=== PATIENT | male | born 1970 | race African-American/Black ===

== ENCOUNTER 2021-11-25 19:56 | Emergency (ER) | payer OTHER ==
[2021-11-25 20:17] VITALS: BP 146/72; PULSE 72; RESP 19; TEMP 98.1; BMI 25.1
[2021-11-25 21:18] LABS: BASO % 0.6 % (0-2.0); EOS % 2.4 % (0-4.5); HEMATOCRIT 40.4 % (35.4-49); HEMOGLOBIN 13.2 GM/dL (11.7-16.9); LYMPH % 43.3 % (8-40); MCH 26.6 pg (25.7-33.7); MCHC 32.6 g/dl (32.0-35.9); MEAN CELL VOLUME 81.4 fl (80-96); MEAN PLT VOLUME 8.4 fl (7.5-11.1); MONO % 6.3 % (3.8-10.2); NEUT % 47.4 % (42.8-82.8); PLATELET COUNT 258 10^3/uL (134-434); RBC 4.96 M/mm3 (4.00-5.60); RDW 13.7 % (11.9-15.9); WHITE BLOOD COUNT 5.9 K/mm3 (4.0-10.0)
[2021-11-25 21:27] LABS: INR 1.04 (0.83-1.09)
[2021-11-25 21:30] LABS: ACTIVATED PTT 30.1 SECONDS (25.2-36.5)
[2021-11-25 21:42] LABS: CALCIUM 9.7 mg/dL (8.5-10.1)
[2021-11-25 21:43] LABS: ALBUMIN 4.1 g/dl (3.4-5.0); BLOOD UREA NITROGEN 18.5 mg/dL (7-18)
[2021-11-25 21:46] LABS: CREATININE 1.4 mg/dL (0.55-1.3)
[2021-11-25 21:48] LABS: BILIRUBIN,TOTAL 0.2 mg/dL (0.2-1); TOT PROT 7.7 g/dl (6.4-8.2)
[2021-11-25] MEDS ORDERED: SODIUM CHLORIDE 0.9% 500 ML INFUS.BAG IV ONE (21:59)
== END 2021-11-26 00:19 | disposition home or self-care (01) ==
LOC: JER 19:56
DX: R07.9 Chest pain, unspecified (principal)
CPT/HCPCS: 36415; 71045-TC-FY; 80053; 84484; 85025; 85610; 85730; 86850; 86900; 86901; 93005; 93010; 99285-25

== ENCOUNTER 2022-10-21 16:12 | Emergency (ER) | payer OTHER ==
[2022-10-21 16:35] VITALS: TEMP 98; BMI 24.7
[2022-10-21] MEDS ORDERED: ACETAMINOPHEN 1000 MG/100 ML BAG IVPB ONE (17:46)
[2022-10-21] MEDS ORDERED: MECLIZINE HCL 25 MG TABLET (FP) PO ONE (17:46)
[2022-10-21] MEDS ORDERED: SODIUM CHLORIDE 1,000 ML IV STA (17:47)
[2022-10-21] MEDS ORDERED: MECLIZINE HCL 25 MG TABLET (FP) ONE (18:08)
[2022-10-21] MEDS ORDERED: ACETAMINOPHEN INJECTION 100 ML IVPB ONE (18:09)
[2022-10-21 18:18] LABS: BASO % 0.6 % (0-2.0); EOS % 2.3 % (0-4.5); HEMOGLOBIN 13.2 GM/dL (11.7-16.9); LYMPH % 45.1 % (8-40); MCH 26.5 pg (25.7-33.7); MEAN CELL VOLUME 80.5 fl (80-96); MEAN PLT VOLUME 8.6 fl (7.5-11.1); MONO % 8.8 % (3.8-10.2); NEUT % 43.2 % (42.8-82.8); PLATELET COUNT 221 10^3/uL (134-434); RBC 4.97 M/mm3 (4.00-5.60); RDW 14.4 % (11.9-15.9); WHITE BLOOD COUNT 5.2 K/mm3 (4.0-10.0)
[2022-10-21 18:19] LABS: EPI CELLS 2 /uL (0-25.1); HYALINE CASTS 0 /uL (0-3.1); PH,URINE 6.5 (5.0-8.0); URINE APPEARANCE CLEAR; URINE BACTERIA 0 /uL (0-1359); URINE BILIRUBIN NEGATIVE (NEGATIVE); URINE COLOR YELLOW; URINE GLUCOSE (UA) TRACE (NEGATIVE); URINE KETONE NEGATIVE (NEGATIVE); URINE LEUK ESTERASE NEGATIVE (NEGATIVE); URINE NITRITE NEGATIVE (NEGATIVE); URINE PROTEIN NEGATIVE (NEGATIVE); URINE RBC 46 /uL (0-23.9); URINE UROBILINOGEN 0.2 mg/dL (0.2-1.0); URINE WBC 0 /uL (0-25.8)
[2022-10-21 18:31] LABS: CHLORIDE 105 mmol/L (98-107); POTASSIUM 4.4 mmol/L (3.5-5.1); SODIUM 138 mmol/L (136-145)
[2022-10-21 18:33] LABS: CALCIUM 8.8 mg/dL (8.5-10.1)
[2022-10-21 18:34] LABS: ALBUMIN 3.9 g/dl (3.4-5.0); ANION GAP 7 MMOL/L (8-16); BLOOD UREA NITROGEN 15.3 mg/dL (7-18); CO2 26 mmol/L (21-32); GLUCOSE,RANDOM 197 mg/dL (74-106)
[2022-10-21 18:37] LABS: CREATININE 1.3 mg/dL (0.55-1.3); SGOT/AST 15 U/L (15-37); SGPT/ALT 33 U/L (13-61)
[2022-10-21 18:38] LABS: BILIRUBIN,TOTAL < 0.1 mg/dL (0.2-1)
[2022-10-21 18:39] LABS: TOT PROT 7.2 g/dl (6.4-8.2)
[2022-10-21 18:40] LABS: ALK PHOS 87 U/L (45-117)
[2022-10-21 20:42] VITALS: BP 132/72; PULSE 76; RESP 18
== END 2022-10-21 20:43 | disposition home or self-care (01) ==
LOC: JER 16:12
PROC: 3E033NZ Introduction of Analgesics, Hypnotics, Sedatives into Peripheral Vein, Percutaneous Approach (ICD-10-PCS; principal; 2022-10-21)
PROC: 3E0337Z Introduction of Electrolytic and Water Balance Substance into Peripheral Vein, Percutaneous Approach (ICD-10-PCS; 2022-10-21)
DX: R42 Dizziness and giddiness (principal); R07.9 Chest pain, unspecified; R51.9 Headache, unspecified; R11.0 Nausea; Z20.822 Contact with and (suspected) exposure to COVID-19
CPT/HCPCS: 0241U-QW; 36415; 70450-TC; 71045-TC-FY; 80053; 81003; 84484; 85025; 87086; 93005; 93010; 99285-25

== ENCOUNTER 2023-02-09 16:50 | Observation (INO) | payer OTHER ==
[2023-02-09] MEDS ORDERED: ASPIRIN 81 MG CHEWABLE TABLETS PO ONE (17:50)
[2023-02-09] MEDS ORDERED: ASPIRIN 81 MG CHEWABLE TABLETS ONE (18:01)
[2023-02-09 18:45] LABS: BASO % 0.8 % (0-2.0); EOS % 2.6 % (0-4.5); HEMATOCRIT 41.2 % (35.4-49); HEMOGLOBIN 13.5 GM/dL (11.7-16.9); LYMPH % 43.1 % (8-40); MCH 26.4 pg (25.7-33.7); MCHC 32.8 g/dl (32.0-35.9); MEAN CELL VOLUME 80.4 fl (80-96); MEAN PLT VOLUME 8.3 fl (7.5-11.1); MONO % 9.6 % (3.8-10.2); NEUT % 43.9 % (42.8-82.8); PLATELET COUNT 256 10^3/uL (134-434); RBC 5.13 M/mm3 (4.00-5.60); RDW 14.2 % (11.9-15.9); WHITE BLOOD COUNT 5.9 K/mm3 (4.0-10.0)
[2023-02-09 18:57] LABS: INR 1.02 (0.83-1.09); PROTHROMBIN TIME (PATIENT) 11.8 SEC (9.7-13.0)
[2023-02-09 19:35] LABS: POTASSIUM 4.6 mmol/L (3.5-5.1)
[2023-02-09 19:37] LABS: CALCIUM 8.9 mg/dL (8.5-10.1)
[2023-02-09 19:38] LABS: ALBUMIN 3.9 g/dl (3.4-5.0); BLOOD UREA NITROGEN 16.7 mg/dL (7-18); MAGNESIUM 2.1 mg/dL (1.8-2.4)
[2023-02-09 19:41] LABS: CREATININE 1.3 mg/dL (0.55-1.3)
[2023-02-09 19:42] LABS: TOT PROT 7.5 g/dl (6.4-8.2)
[2023-02-09 19:43] LABS: BILIRUBIN,TOTAL 0.2 mg/dL (0.2-1)
[2023-02-10 02:46] VITALS: BMI 25.0
[2023-02-10] MEDS: INSULIN SLIDING SCALE (NOVOLOG) 1 VIAL SQ SCH ×2 (06:22→12:44)
[2023-02-10] MEDS ORDERED: HYDROCHLOROTHIAZIDE 12.5 MG CAPSULE (FP) PO SCH (07:00)
[2023-02-10 07:43] LABS: HEMATOCRIT 41.7 % (35.4-49); HEMOGLOBIN 13.4 GM/dL (11.7-16.9); MCH 26.2 pg (25.7-33.7); MCHC 32.2 g/dl (32.0-35.9); MEAN CELL VOLUME 81.3 fl (80-96); MEAN PLT VOLUME 8.3 fl (7.5-11.1); PLATELET COUNT 249 10^3/uL (134-434); RBC 5.13 M/mm3 (4.00-5.60); RDW 13.5 % (11.9-15.9); WHITE BLOOD COUNT 5.2 K/mm3 (4.0-10.0)
[2023-02-10 07:57] LABS: POTASSIUM 4.7 mmol/L (3.5-5.1)
[2023-02-10 08:03] LABS: CALCIUM 8.8 mg/dL (8.5-10.1)
[2023-02-10 08:04] LABS: ALBUMIN 3.8 g/dl (3.4-5.0); BLOOD UREA NITROGEN 11.9 mg/dL (7-18)
[2023-02-10 08:07] LABS: CREATININE 1.2 mg/dL (0.55-1.3)
[2023-02-10 08:08] LABS: BILIRUBIN,TOTAL 0.6 mg/dL (0.2-1); TOT PROT 7.1 g/dl (6.4-8.2)
[2023-02-10] MEDS: ENOXAPARIN NA (PORCINE) 40 MG/0.4 ML DISP.SYRIN SQ SCH ×2 (09:46→10:13)
[2023-02-10] MEDS ORDERED: ASPIRIN COATED 81 MG TABLET.EC PO SCH (10:30)
[2023-02-10 11:38] VITALS: RESP 18
[2023-02-10 16:44] VITALS: BP 158/83; PULSE 77; TEMP 98
[2023-02-10] MEDS ORDERED: LISINOPRIL 10 MG TABLET PO SCH (22:00)
== END 2023-02-10 16:50 | disposition home or self-care (01) ==
LOC: JER 16:50 → JERBED 23:01 → J4W 02-10 03:19
PROVIDERS: ADMIT Internal Medicine; ATTEND Internal Medicine
DX: R07.89 Other chest pain (principal); R06.02 Shortness of breath; E11.9 Type 2 diabetes mellitus without complications; I10 Essential (primary) hypertension; Z29.89 Encounter for other specified prophylactic measures
CPT/HCPCS: 36415; 71045-TC-FY; 80053; 80061; 82962; 83036; 83735; 84484; 85025; 85027; 85379; 85610; 93005; 93010; 93017; 93018; 93306-TC; 99285-25; G0378